=== PATIENT | female | born 1960 | race Native Hawaiian/Other Pacific Islander ===

== ENCOUNTER 2017-11-21 09:17 | Day surgery (SDC) | payer BC ==
[2017-11-07 09:55] VITALS: BMI 27.1
[2017-11-21 10:07] LABS: PROTHROMBIN TIME 10.8 SECONDS (9.7-12.2)
[2017-11-21] MEDS ORDERED: Propofol 10 mg/ml Inj (20 ML) ONE (11:05)
[2017-11-21] MEDS ORDERED: Midazolam 2 MG/2 ML VIAL ONE ×2 (11:06→11:15)
[2017-11-21] MEDS ORDERED: ceFAZolin IV 2 gm in Dextrose 2 GM/50 ML BAG IVPB ONE (11:11)
[2017-11-21] MEDS ORDERED: Dexamethasone 4 mg/1 ml IVP PRN (11:38)
[2017-11-21 12:08] VITALS: O2SAT 100
[2017-11-21 13:07] VITALS: RESP 18
[2017-11-21 14:13] VITALS: BP 116/57; PULSE 69; TEMP 97.1
--- NOTE | 2017-11-24 14:52 | CARD ---
APPROVED REPORT EKG Measurement Heart [id number] OK [id number] <Conclusion> Sinus tachycardia Otherwise normal ECG
--- NOTE | 2017-12-01 07:09 | OP ---
PROCEDURE DATE: 11/21/2017 NATURE OF OPERATION: Fractional dilatation and curettage and hysteroscopy. OPERATING SURGEON: Teddy Montaño MD. FLOOR TILING PROFESSIONAL: Dr. Rees. KIND OF ANESTHESIA: General. PREOPERATIVE DIAGNOSIS: Postmenopausal bleeding. POSTOPERATIVE DIAGNOSIS: pending. FINDINGS: On pelvic examination under anesthesia, the external genitalia was normal, vagina was clean. The cervix was inflamed and closed. The uterus was of normal size, directed anteriorly and sounded to 3-1/3 inches in depth with a smooth cavity and a small amount of endometrial tissue obtained. DESCRIPTION OF PROCEDURE: Under general anesthesia, the patient in dorsal lithotomy position, she was prepped and draped and catheterized in the usual sterile manner. A heavy weighted speculum was placed on the posterior vaginal vault and with the help of a Carlton speculum, the anterior lip of the cervix was grasped via tenaculum. The uterus was sounded and found to be anteverted to a depth of 3-1/3 inches. The endocervical curettage was then done productive of a small amount of endocervical tissue. Serial dilatation of the cervix was done with Hanks dilator up to #18. The hysteroscopic instrument was inserted, and with sorbitol, the uterine cavity was distended. The endometrial cavity was visualized. Then the hysteroscope was removed and further dilatation of the cervix was done with Hanks dilator up to #20. This was followed by sharp clockwise curettage of the endometrial cavity which was productive of a small amount of endometrial tissue. The cavity was noted to be smooth. The patient tolerated the procedure well and sent to recovery room in satisfactory condition. Teddy Montaño MD
== END 2017-11-21 14:00 | disposition home or self-care (01) ==
LOC: C.SDS 09:17
PROVIDERS: ATTEND Obstetrics & Gynecology Gynecology
DX: N95.0 Postmenopausal bleeding (principal)
CPT/HCPCS: 36415; 58558; 85610; 85730; 88305; 93005; J0690; J2250; J2704; J3010

== ENCOUNTER 2018-10-28 09:26 | Outpatient (CLI) | payer BC | END 2018-10-28 09:27 | disposition home or self-care (01) | LOC: C.CARD 09:26 | DX: I10 Essential (primary) hypertension (principal); R06.02 Shortness of breath ==